=== PATIENT | female | born 1985 | race Caucasian/White ===

== ENCOUNTER 2016-10-01 10:59 | Outpatient (CLI) | payer MEDICAID ==
[~2016-10-01] VITALS: Ht 160 cm; Wt 72.5 kg
[2016-10-01] MEDS ORDERED: PRENAT PO (11:15)
[2016-10-01] MEDS ORDERED: FOLI-49 PO (11:15)
[2016-10-01 11:16] VITALS: BP 107/62; PULSE 94; RESP 18; Ht 160 cm; Wt 72.5 kg
--- NOTE | 2016-10-01 11:54 | RADRPT ---
PROCEDURE: OB ultrasound for biophysical profile CLINICAL INDICATION: Contractions. TECHNIQUE: Multiple sonographic images of the pelvis were obtained. Transabdominal view of the gr avid uterus are available for review. The images were reviewed on a PACS workstation. COMPARISON: None FINDINGS: breathing movement = 2/2 tone = 2/2 motion = 2/2 Quantitative amniotic fluid volume = 2/2 VIKTORIA = 17.1 cm Single live intrauterine with cardiac activity at 163 beats per minute. There is a posterior placenta without previa. IMPRESSION: 1. Single living intrauterine gestation in cephalic position. 2. Biophysical profile = 02/03. 3. VIKTORIA = 17.1 cm. RPTAT: AACC Physician Mary Date Time Electronically viewed and signed by Jeet King Physician on 10/01/2016 11:53 /
--- NOTE | 2016-10-01 12:09 | RADRPT ---
PROCEDURE: US OB CLINICAL INDICATION: Contractions TECHNIQUE: Multiple sonographic images of the pelvis were obtained. The images were reviewed on a PACS workstation. COMPARISON: None FINDINGS: The cervix is closed with a length of 3.5 cm. There is a single viable intrauterine gestation. Cardiac activity is present with 144 beats per minute. There is a vertex presentation. The placenta is posterior. There is no evidence for an abruption or placenta previa. There is a subjectively normal amount of amniotic fluid. Measurements were made in order to determine age. The results are as follows (cm): BPD =8.69 HC =32.26 AC =32.04 FL =6.74 Estimated gestational age by ultrasound of approximately 35 weeks, 4 days. The estimated date of delivery by ultrasound is 11/01/2016. Estimated gestational age by LMP of approximately 34 weeks, 0 days. The estimated date of delivery by LMP is 11/12/2016. EFW = 2714 grams (86th percentile) IMPRESSION: Single viable intrauterine gestation of approximately 35 weeks, 48 . The estimated date of delivery is is 11/01/2016 . Dating by ultrasound is within 11 days of dating by LMP. Cephalic presentation. RPTAT: EE Physician Garrett Date Time Electronically viewed and signed by Physician Garrett on 10/01/2016 12:09 /
--- NOTE | 2016-10-01 13:14 | TRIAGE ---
OB Triage Datetime Report Generated by CPN: 10/01/2016 13:13 Datetime: 10/01/2016 11:14 Assessment Type: Triage Maternal Assessment Level of Consciousness: Fully Conscious DTR's/Clonus: DTRs 2+; No Clonus Headache: Denies Blurred Vision: No Respiratory Effort: Unlabored; Regular Rhythm; Equal Expansion Breath Sounds, Left: Clear and Equal Breath Sounds, Right: Clear and Equal Nausea/Vomiting: Denies RUQ Epigastric Pain: Denies Lower Extremities Edema: None Degree: None Upper Extremities Edema: None Degree: None Facial Edema: None Fall Risk Assessment History of Falling: (0) No Secondary Diagnosis: (0) No Ambulatory Aid: (0) Bedrest/Nurse Assist IV Therapy: (0) No Gait: (0) Normal/Bedrest/Immobile Mental Status: (0) Oriented to Own Ability Fall Score: 0 Fall Risk Score Definition: No Risk: No action required Datetime: 10/01/2016 11:12 Time of Arrival: 10/01/2016 10:52 EGA: 34.3 Arrived By: Ambulatory Arrived From: Dr. Santamaria Chief Complaint: PT SENT IN FROM OB OFFICE FOR EVAL. OF PTL. Movement: Present Contractions: Irregular Rupture of Membranes: Denies Vaginal Bleeding: None Vaginal Discharge: Present Recent Sexual Intercouse: Denies Abdominal Trauma: Not Applicable Patient Complaints: Contractions; Cramping; Back Pain Provider Notified: TU Initial Plan: EFM, U/S BPP, EFW, CVL Datetime: 10/01/2016 11:08 Labor Evaluation Monitor Mode: External Heart Rate Monitor Mode: External US
== END 2016-10-01 13:20 | disposition home or self-care (01) ==
LOC: OBT 10:59 → L-D 11:00 → OBT 13:20
PROVIDERS: ATTEND Obstetrics & Gynecology
DX: O26.893 Other specified pregnancy related conditions, third trimester (principal); O62.9 Abnormality of forces of labor, unspecified; Z3A.34 34 weeks gestation of pregnancy
CPT/HCPCS: 76815; 76817; 76818; Z7500; G0463

== ENCOUNTER 2016-11-04 15:10 | Inpatient (IN) | payer MEDICAID ==
[~2016-11-04] VITALS: Ht 160 cm; Wt 71.7 kg
[~2016-11-04 15:10] MED LIST: FOLI-49 PO; PRENAT PO
[2016-11-04 15:21] VITALS: Ht 160 cm; Wt 71.7 kg
[2016-11-04 15:22] VITALS: BP 120/69; PULSE 82; RESP 19
--- NOTE | 2016-11-04 17:55 | TRIAGE ---
OB Triage Datetime Report Generated by CPN: 11/04/2016 17:55 Datetime: 11/04/2016 17:38 Vaginal Exam Dilatation (cms): 3.0 Effacement (%): 60 Station: -2 Exam By: RRAMIREZ Vaginal Bleeding: None Cervix, Consistency: Soft Cervix, Position: Midposition Datetime: 11/04/2016 15:29 Maternal Assessment Level of Consciousness: Fully Conscious DTR's/Clonus: DTRs 1+ Headache: Denies Blurred Vision: No Breath Sounds, Left: Clear and Equal Breath Sounds, Right: Clear and Equal Nausea/Vomiting: Denies RUQ Epigastric Pain: Denies Facial Edema: None Labor Evaluation Frequency: X1 Monitor Mode: External Duration (sec)2399: 50 Quality: Mild Pattern: Normal: <= 5 Contractions in 10 Minutes Resting Tone [place]: Relaxed Heart Rate FHR Baseline Rate: 135 Monitor Mode: External US Variability: Moderate 6-25 bpm Accelerations: 15X15 Decelerations: None Category: Category I Pain Assessment Pain Scale: 5 Pain Presence: Intermittent Pain Type: Cramping Pain Location: Abdomen Pain Goal: 3 Pain Relief Measures: Comfort Measures Membrane Status: Intact Datetime: 11/04/2016 15:19 Assessment Type: Triage Maternal Assessment Level of Consciousness: Fully Conscious DTR's/Clonus: DTRs 2+; No Clonus Headache: Denies Blurred Vision: No Respiratory Effort: Unlabored; Regular Rhythm; Equal Expansion Breath Sounds, Left: Clear and Equal Breath Sounds, Right: Clear and Equal Nausea/Vomiting: Denies RUQ Epigastric Pain: Denies Lower Extremities Edema: None Degree: None Upper Extremities Edema: None Degree: None Facial Edema: None Fall Risk Assessment History of Falling: (0) No Secondary Diagnosis: (0) No Ambulatory Aid: (0) Bedrest/Nurse Assist IV Therapy: (0) No Gait: (0) Normal/Bedrest/Immobile Mental Status: (0) Oriented to Own Ability Fall Score: 0 Fall Risk Score Definition: No Risk: No action required Datetime: 11/04/2016 15:16 Vaginal Exam Dilatation (cms): 2.0 Effacement (%): 50 Station: -2 Exam By: ILDA MITCHELL Vaginal Bleeding: None Cervix, Consistency: Soft Cervix, Position: Posterior Presentation 'A': Cephalic Datetime: 11/04/2016 15:00 Time of Arrival: 11/04/2016 15:00 EGA: 39.2 Arrived By: Ambulatory Arrived From: Home Chief Complaint: R/O LABOR Movement: Present Contractions: Denies/Absent Rupture of Membranes: Denies Vaginal Discharge: Denies Recent Sexual Intercouse: Denies Abdominal Trauma: Not Applicable Additional Patient Complaints: NONE Time Provider Notified: 11/04/2016 15:19 Provider Notified: TU Initial Plan: VE AND MONITOR PT TO AMBULATE FOR 2 HRS Datetime: 10/01/2016 11:14 Fall Score: 0 Fall Risk Score Definition: No Risk: No action required Datetime: 10/01/2016 11:12 EGA: 34.3
[2016-11-04] MEDS ORDERED: MISOPROSTOL 200 MCG TAB PR PRN (18:00)
[2016-11-04] MEDS ORDERED: LIDOCAINE 1% (MPF) 30 ML INJ INJ PRN (18:00)
[2016-11-04] MEDS ORDERED: BUTORPHANOL 2 MG INJ IV PRN ×2 (18:00→18:30)
[2016-11-04] MEDS ORDERED: LACTATED RINGER'S 1,000 ML IV PRN (18:00)
[2016-11-04] MEDS ORDERED: AMPICILLIN 2 GM/NS (PMX) 100 ML IV ONE (18:00)
[2016-11-04] MEDS ORDERED: OXYTOCIN 30 UNITS/LR 500 ML IV SCH ×2 (18:00→18:30)
[2016-11-04] MEDS ORDERED: METHYLERGONOVINE 0.2 MG INJ IM PRN (18:00)
[2016-11-04] MEDS ORDERED: IBUPROFEN 600 MG TAB PO PRN (18:00)
[2016-11-04] MEDS ORDERED: OXYTOCIN 30 UNITS/LR 500 ML IV PRN (18:00)
[2016-11-04] MEDS ORDERED: CARBOPROST 250 MCG INJ IM PRN (18:00)
[2016-11-04] MEDS: LACTATED RINGER'S 1,000 ML IV SCH (18:25)
[2016-11-04 18:37] LABS: ADD SCAN DIFF NO
[2016-11-04 18:39] LABS: BASOPHIL # 0.1 10^3/ul (0.0-0.1); BASOPHILS % 0.5 % (0.0-2.0); EOSINOPHILS # 0.2 10^3/ul (0.0-0.5); HEMATOCRIT 40.7 % (37.0-47.0); HEMOGLOBIN 14.3 g/dl (12.0-16.0); LYMPHOCYTES # 2.2 10^3/ul (0.8-2.9); LYMPHOCYTES % 21.5 % (15.0-51.0); MEAN CORPUSCULAR HEMOGLOBIN 32.7 pg (29.0-33.0); MEAN CORPUSCULAR HGB CONC 35.1 g/dl (32.0-37.0); MEAN CORPUSCULAR VOLUME 93.1 fl (82.0-101.0); MEAN PLATELET VOLUME 11.2 fl (7.4-10.4); MONOCYTE # 1.2 10^3/ul (0.3-0.9); MONOCYTES % 11.3 % (0.0-11.0); NEUTROPHIL # 6.3 10^3/ul (1.6-7.5); PLATELET COUNT 192 10^3/UL (140-415); RED BLOOD COUNT 4.37 10^6/ul (4.20-5.40); RED CELL DISTRIBUTION WIDTH 13.3 % (11.5-14.5); WHITE BLOOD COUNT 10.2 10^3/ul (4.8-10.8)
[2016-11-04 18:54] LABS: INR 0.96; PROTIME 12.8 Sec (12.2-14.2)
[2016-11-04 18:55] LABS: PARTIAL THROMBOPLASTIN TIME 28.9 Sec (25.0-35.0)
[2016-11-04] MEDS ORDERED: MINERAL OIL LIGHT 10 ML VIAL TOP PRN (20:30)
[2016-11-04] MEDS ORDERED: AMPICILLIN 1 GM/NS (PMX) 50 ML IV SCH (22:00)
[2016-11-05] MEDS: LACTATED RINGER'S 1,000 ML IV SCH ×2 (01:11→09:06)
[2016-11-05] MEDS ORDERED: OXYTOCIN 30 UNITS/LR 500 ML IV SCH (09:00)
[2016-11-05] MEDS ORDERED: FENTAnyl 2MCG/ML-ROPIV 0.2% 100 ML ONE (12:06)
--- NOTE | 2016-11-05 13:18 | RADRPT ---
PROCEDURE: US OB. CLINICAL INDICATION: Size and dates , leaking fluid TECHNIQUE: Multiple sonographic images of the pelvis and gravid uterus were obtained. The images were reviewed on a PACS workstation. COMPARISON: No prior studies are available for comparison. FINDINGS: There is a single viable intrauterine gestation. Cardiac activity is present with 168 beats per min joe. There is a fundal presentation. The placenta is anterior. There is no evidence for an abruption or placenta previa. There is a normal amount of amniotic fluid with an VIKTORIA = 8.8 cm. Measurements were made in order to determine age. The results are as follows: BPD =9.1 cm HC =33.2 cm AC =37.5 cm FL =7.5 cm Estimated gestational age of approximately 38 weeks and 5 days based on ultrasound measurements. Clinical age: 39 weeks and 3 days. The estimated date of delivery is 11/14/2016, based on ultrasound measurements. The EFW = 3881 g, 79%, based on LMP age. RPTAT: AA IMPRESSION: Single viable intrauterine gestation of approximately 38 weeks and 5 days based on ultrasound measu rements. .Nolan Alan MD, Date Time Electronically viewed and signed by .Nolan Alan MD, MD on 11/05/2016 13:18 .S/
[2016-11-05] MEDS ORDERED: MIDAZOLAM 1 MG/ML 2 ML INJ IV PRN (13:30)
[2016-11-05] MEDS ORDERED: KETOROLAC 30 MG INJ IV PRN (13:30)
[2016-11-05] MEDS ORDERED: FENTAnyl 2MCG/ML-ROPIV 0.2% 100 ML BAG EPI SCH (13:30)
[2016-11-05] MEDS ORDERED: DIPHENHYDRAMINE 50 MG INJ IV PRN ×2 (13:30)
[2016-11-05] MEDS ORDERED: HYDROmorphONE (0.2 MG/ML) 10ML SYG IV PRN ×3 (13:30)
[2016-11-05] MEDS ORDERED: ZOLPIDEM 5 MG TAB PO PRN (13:30)
[2016-11-05] MEDS ORDERED: MEPERIDINE 25 MG INJ IV PRN (13:30)
[2016-11-05] MEDS ORDERED: ONDANSETRON 4 MG INJ IV PRN ×3 (13:30→18:00)
[2016-11-05] MEDS ORDERED: LABETALOL HCL 20MG INJ IV PRN (13:30)
[2016-11-05] MEDS ORDERED: hydrALAzine 20 MG INJ IV PRN (13:30)
[2016-11-05] MEDS ORDERED: FENTAnyl 50 MCG/ML VIAL IV PRN ×3 (13:30)
[2016-11-05] MEDS ORDERED: NALOXONE (0.4 MG/ML) INJ IV PRN (13:30)
[2016-11-05] MEDS ORDERED: EPHEDrine SULFATE 50 MG/5 ML SYG IV PRN (13:30)
[2016-11-05] MEDS ORDERED: TRIMETHOBENZAMIDE 100 MG/ML VIAL IM PRN (13:30)
[2016-11-05] MEDS ORDERED: morphine 2 MG INJ IV PRN ×2 (13:30)
--- NOTE | 2016-11-05 16:56 | LDN ---
Date/Time of Note Date/Time of Note DATE: 11/05/16 TIME: 16:52 Delivery Summary Normal spontaneous vaginal delivery of a baby boy from OA position shoulders delivered with no difficulties rest of the baby's body followed placenta spontaneous expulsion inspected complete, patient sustained small 1 cm perineal laceration repaired with 3-0 chromic catgut estimated blood loss 250 cc Weeks of Gestation 39 weeks 3 days Placenta Delivered: Spontaneously Meconium: none Episiotomy: No Laceration repair: Small 1 cm perineal laceration repaired with 3-0 chromic catgut Anesthesia type: Epidural Sponge & Needle done & correct: Yes All needle counts correct: Yes Any foreign bodies felt in the: No Problems: Delivery Information Apgars 1 Minute: 9 5 Minute: 9 Suctioning Nose & mouth suctioned at timoteo: Yes Delee suction performed: No Umbilical Cord Umbilical cord with: 3 Vessels Cord presentations: no nuchal cord Cord Blood was obtained: Yes FALLON MAE MD November 05, 2016 16:56
--- NOTE | 2016-11-05 17:01 | HP ---
Date/Time of Note Date/Time of Note DATE: 11/05/16 TIME: 16:56 OB - History Hx of Present Free Text/Dictation 30 years old female 5 para SAB 2 admitted to [facility] in labor pelvic examination on admission cervix 3 cm dilated 60% effaced vertex at -2 stay contraction 5-7 minutes moderate in intensity may need labor augmentation Estimated Due Date: November 09, 2016 : 5 Para: 2 Spontaneous : 2 Care: Good Care Ultrasounds: Normal mid trimester US Obstetrical Complications: None Medical Complications: None Past Family/Social History * Past Medical, Surgical, Family and Obstetric Histories reviewed from chart. Rubella: immune RPR/VDRL: Negative GBS Status: Negative HBsAG: Negative OB Admission Exam Vital Signs Vital Signs Vital Signs Date Time Temp Pulse Resp B/P Pulse Ox O2 Delivery O2 Flow Rate FiO2 11/04/16 15:22 98.0 82 19 120/69 99 Room Air Physical Exam HEENT: WNL Lungs: Clear, Equal Abdomen: WNL Extremities: Normal Cervical Dilatation: 3cm Effacement: 50% Station: -2 Membranes: Intact Heart Rate: 130's Accelerations: Accelerations Present Decelerations: No Decelerations Varibility: Moderate Contractions on Admission: >10 Minutes Apart Intensity: Mild Last 72 hours Lab Results CBC & BMP 11/04/16 18:15 OB Assessment/Plan Reason for admission: other (Labor contraction) Plan: Expectant Management (Expecting management) FALLON MAE MD November 05, 2016 17:01
[2016-11-05] MEDS: OXYTOCIN 30 UNITS/LR 500 ML IV SCH ×2 (17:54→21:01)
[2016-11-05 18:00] VITALS: BP 124/65; PULSE 78; RESP 19
[2016-11-05] MEDS ORDERED: WITCH HAZEL/GLYCERIN PAD PR PRN (18:00)
[2016-11-05] MEDS ORDERED: DIBUCAINE 1% 30 GM OINT PR PRN (18:00)
[2016-11-05] MEDS: IBUPROFEN 600 MG TAB PO SCH ×2 (18:00→23:34)
[2016-11-05] MEDS ORDERED: BENZOCAINE 20% 56 ML SPRAY TOP PRN (18:00)
[2016-11-05] MEDS ORDERED: ACETAMINOPHEN/CODEINE #3 TAB PO PRN ×2 (18:00)
[2016-11-05] MEDS ORDERED: ACETAMINOPHEN 325 MG TAB PO PRN (18:00)
[2016-11-05] MEDS ORDERED: LANOLIN 7 GM TUBE TOP PRN (18:00)
[2016-11-05] MEDS ORDERED: OXYCODONE/ASPIRIN (4.88/325) TAB PO PRN ×2 (18:00)
[2016-11-05 20:00] VITALS: BP 107/55; PULSE 95; RESP 20
[2016-11-05] MEDS: SENNA/DOCUSATE NA (8.6MG/50MG) TAB PO SCH (21:00)
[2016-11-06 00:30] VITALS: BP 114/72; PULSE 79; RESP 20
[2016-11-06 04:40] VITALS: BP 103/54; PULSE 79; RESP 20
[2016-11-06] MEDS: IBUPROFEN 600 MG TAB PO SCH ×4 (06:24→23:31)
[2016-11-06 08:00] VITALS: BP 108/66; PULSE 73; RESP 19
[2016-11-06] MEDS: SENNA/DOCUSATE NA (8.6MG/50MG) TAB PO SCH ×2 (09:58→21:07)
[2016-11-06 10:37] LABS: ADD SCAN DIFF NO
[2016-11-06 10:52] LABS: BASOPHILS % 0.3 % (0.0-2.0); EOSINOPHILS # 0.1 10^3/ul (0.0-0.5); EOSINOPHILS % 0.8 % (0.0-7.0); HEMATOCRIT 37.1 % (37.0-47.0); HEMOGLOBIN 12.7 g/dl (12.0-16.0); LYMPHOCYTES # 2.1 10^3/ul (0.8-2.9); LYMPHOCYTES % 18.1 % (15.0-51.0); MEAN CORPUSCULAR HEMOGLOBIN 32.5 pg (29.0-33.0); MEAN CORPUSCULAR HGB CONC 34.2 g/dl (32.0-37.0); MEAN CORPUSCULAR VOLUME 94.9 fl (82.0-101.0); MEAN PLATELET VOLUME 11.2 fl (7.4-10.4); MONOCYTE # 1.1 10^3/ul (0.3-0.9); MONOCYTES % 9.4 % (0.0-11.0); NEUTROPHIL # 8.2 10^3/ul (1.6-7.5); NEUTROPHILS % 69.9 % (39.0-77.0); PLATELET COUNT 166 10^3/UL (140-415); RED BLOOD COUNT 3.91 10^6/ul (4.20-5.40); RED CELL DISTRIBUTION WIDTH 13.6 % (11.5-14.5); WHITE BLOOD COUNT 11.6 10^3/ul (4.8-10.8)
[2016-11-06 16:00] VITALS: BP 108/55; PULSE 81; RESP 19
[2016-11-06 20:30] VITALS: BP 124/82; PULSE 72; RESP 18
--- NOTE | 2016-11-07 00:51 | QN ---
Documentation Comment afebrile uterus firm lochia normal ext normal FALLON MAE MD November 07, 2016 00:51
--- NOTE | 2016-11-07 00:54 | QN ---
Documentation Comment ppd1 afebrile abd. soft lochia normal ext normal Laboratory Tests Test 11/06/16 10:19 White Blood Count 11.610^3/ul Red Blood Count 3.9110^6/ul Hemoglobin 12.7g/dl Hematocrit 37.1% Mean Corpuscular Volume 94.9fl Mean Corpuscular Hemoglobin 32.5pg Mean Corpuscular Hemoglobin Concent 34.2g/dl Red Cell Distribution Width 13.6% Platelet Count 51445^3/UL Mean Platelet Volume 11.2fl Neutrophils % 69.9% Lymphocytes % 18.1% Monocytes % 9.4% Eosinophils % 0.8% Basophils % 0.3% Nucleated Red Blood Cells % 0.0/100WBC Neutrophils # 8.210^3/ul Lymphocytes # 2.110^3/ul Monocytes # 1.110^3/ul Eosinophils # 0.110^3/ul Basophils # 0.010^3/ul Nucleated Red Blood Cells # 0.010^3/ul Current Medications Medications (Trade) Dose Ordered Sig/Ruben Route PRN Reason Start Time Stop Time Status Last Admin Dose Admin Lactated Ringer's 1,000 ml @ 125 mls/hr Q8H IV 11/04/16 17:48 11/05/16 17:59 DC 11/05/16 09:06 Ampicillin 100 ml @ 100 mls/hr ONCE ONCE IV 11/04/16 18:00 11/04/16 18:26 DC Ampicillin (Ampicillin 1 Gm/ NS (Pmx)) 50 ml @ 100 mls/hr Q4H IV 11/04/16 22:00 11/04/16 22:00 DC Butorphanol Tartrate (Stadol) 1 mg Q2H PRN IV PAIN 11/04/16 18:00 11/05/16 17:59 DC Lidocaine 30 ml 30 ml ONCE PRN INJ EPISIOTOMY/TEARING 11/04/16 18:00 11/05/16 17:59 DC Oxytocin/Lactated Ringer's 500 ml @ 125 mls/hr ONCE -MAY REPEAT X1 IV 11/04/16 18:00 11/05/16 17:59 DC Ibuprofen 600 mg 600 mg ONCE PRN PO Mild Pain (Pain Score 1-3) 11/04/16 18:00 11/05/16 17:59 DC Lactated Ringer's 1,000 ml @ 2,000 mls/hr Q30M PRN IV PRE-EPIDURAL BOLUS 11/04/16 18:00 11/05/16 17:59 DC 11/05/16 12:04 Oxytocin/Lactated Ringer's 500 ml @ 0 mls/hr ONCE PRN IV For Hemorrhage Management 11/04/16 18:00 11/05/16 17:59 DC Methylergonovine Maleate (Methergine) 0.2 mg ONCE PRN IM VAGINAL BLEEDING 11/04/16 18:00 Carboprost Tromethamine (Hemabate) 250 mcg ONCE PRN IM VAGINAL BLEEDING 11/04/16 18:00 Misoprostol 1000 mcg 1,000 mcg ONCE PRN OK VAGINAL BLEEDING 11/04/16 18:00 11/05/16 18:00 DC Oxytocin/Lactated Ringer's 500 ml @ 125 mls/hr ONCE IV 11/04/16 18:30 11/05/16 18:00 DC 11/05/16 16:31 Butorphanol Tartrate (Stadol) 2 mg Q2H PRN IV PAIN 11/04/16 18:30 11/05/16 18:00 DC Mineral Oil ONCE PRN TOP LABOR INDUCTION 11/04/16 20:30 11/05/16 18:00 DC Oxytocin/Lactated Ringer's 500 ml @ 0 mls/hr Q0M IV 11/05/16 09:00 11/05/16 18:00 DC 11/05/16 09:08 Fentanyl/ Ropivacaine 100 ml @ ud STK-MED ONCE .ROUTE 11/05/16 12:06 11/05/16 12:07 DC Hydromorphone HCl (Dilaudid (Rec)) 0.2 mg PACU ORDER PRN IV MILD PAIN LEVEL 1-3 11/05/16 13:30 11/05/16 18:00 DC Hydromorphone HCl (Dilaudid (Rec)) 0.4 mg PACU ORDER PRN IV MODERATE PAIN LEVEL 4-6 11/05/16 13:30 11/05/16 18:00 DC Hydromorphone HCl (Dilaudid (Rec)) 0.6 mg PACU ORDER PRN IV SEVERE PAIN LEVEL 7-10 11/05/16 13:30 11/05/16 18:00 DC Fentanyl (Sublimaze) 25 mcg PACU ORDER PRN IV MILD PAIN LEVEL 1-3 11/05/16 13:30 11/05/16 18:00 DC Fentanyl (Sublimaze) 50 mcg PACU ODER PRN IV MODERATE PAIN LEVEL 4-6 11/05/16 13:30 11/05/16 18:00 DC Fentanyl (Sublimaze) 75 mcg PACU ORDER PRN IV SEVERE PAIN LEVEL 7-10 11/05/16 13:30 11/05/16 18:00 DC Ondansetron HCl (Zofran Inj) 4 mg PACU ORDER PRN IV NAUSEA AND/OR VOMITING 11/05/16 13:30 11/05/16 18:00 DC Trimethobenzamide HCl (Tigan) 200 mg PACU ORDER PRN IM NAUSEA AND/OR VOMITING 11/05/16 13:30 11/05/16 18:00 DC Labetalol HCl (Labetalol) 5 mg PACU ORDER PRN IV HIGH BLOOD PRESSURE 11/05/16 13:30 11/05/16 18:00 DC Hydralazine HCl (Apresoline) 5 mg PACU ORDER PRN IV HIGH BLOOD PRESSURE 11/05/16 13:30 11/05/16 18:00 DC Ephedrine Sulfate 5 mg PACU ORDER PRN IV MAP LESS THAN 60 11/05/16 13:30 11/05/16 18:00 DC Meperidine HCl (Demerol) 25 mg PACU ORDER PRN IV POST-OP RIGORS 11/05/16 13:30 11/05/16 18:00 DC Diphenhydramine HCl (Benadryl) 25 mg PACU ORDER PRN IV PRURITUS 11/05/16 13:30 11/05/16 18:00 DC Midazolam HCl (Versed) 0.5 mg PACU ORDER PRN IV ANXIETY 11/05/16 13:30 11/05/16 18:00 DC Naloxone HCl (Narcan) 0.1 mg Q2M PRN IV FOR RESP RATE 8 OR LESS 11/05/16 13:30 11/05/16 18:00 DC Ketorolac Tromethamine (Toradol) 30 mg Q6H PRN IV PAIN 11/05/16 13:30 11/05/16 18:00 DC Morphine Sulfate (morphine) 2 mg Q3H PRN IV PAIN LEVEL 1-5 11/05/16 13:30 11/05/16 18:00 DC Morphine Sulfate (morphine) 4 mg Q3H PRN IV PAIN LEVEL 6-10 11/05/16 13:30 11/05/16 18:00 DC Diphenhydramine HCl (Benadryl) 25 mg Q6H PRN IV ITCHING 11/05/16 13:30 11/05/16 18:00 DC Ondansetron HCl (Zofran Inj) 4 mg Q6H PRN IV NAUSEA AND/OR VOMITING 11/05/16 13:30 11/05/16 18:00 DC Zolpidem Tartrate (Ambien) 5 mg HS MAY REPEAT X 1 PRN PO INSOMNIA 11/05/16 13:30 11/06/16 13:29 DC Fentanyl/ Ropivacaine 100 ml 100 ml EPIDURAL INFUSION EPI 11/05/16 13:30 11/05/16 18:00 DC Oxytocin/Lactated Ringer's 500 ml @ 125 mls/hr Q4H IV 11/05/16 17:54 11/06/16 01:53 DC 11/05/16 21:01 Ibuprofen (Motrin) 600 mg Q6 PO 11/05/16 18:00 11/06/16 23:31 Acetaminophen (Tylenol Tab) 650 mg Q4H PRN PO PAIN LEVEL 1-5 11/05/16 18:00 Acetaminophen/ Codeine Phosphate (Tylenol No.3) 1 tab Q4H PRN PO PAIN LEVEL 1-5 11/05/16 18:00 Acetaminophen/ Codeine Phosphate (Tylenol No.3) 2 tab Q4H PRN PO PAIN LEVEL 6-10 11/05/16 18:00 Oxycodone/Aspirin (Percodan) 1 tab Q3H PRN PO PAIN LEVEL 1-5 11/05/16 18:00 Oxycodone/Aspirin (Percodan) 2 tab Q3H PRN PO PAIN LEVEL 6-10 11/05/16 18:00 Ondansetron HCl (Zofran Inj) 4 mg Q6H PRN IV NAUSEA AND/OR VOMITING 11/05/16 18:00 Senna/Docusate Sodium (Senokot-S) 1 tab BID PO 11/05/16 21:00 11/06/16 21:07 Witch Peggy/ Glycerin (Tucks Pads) 1 pad BEDSIDE MEDICATION PRN OK HEMORRHOID/EPISIOTMY PAIN 11/05/16 18:00 11/05/16 23:34 Benzocaine (Dermoplast [place]) 1 spray BEDSIDE MEDICATION PRN TOP HEMORRHOID/EPISIOTMY PAIN 11/05/16 18:00 11/05/16 23:35 Dibucaine (Nupercainal) 1 applic BEDSIDE MEDICATION PRN OK HEMORRHOID/EPISIOTMY PAIN 11/05/16 18:00 11/05/16 23:35 Lanolin (Fny-N-Eicjqn) 1 applic BEDSIDE MEDICATION PRN TOP BEDSIDE FOR NO TO NIPPLES 11/05/16 18:00 11/05/16 23:36 Measles/Mumps/ Rubella Vaccine Live (Mmr Ii Vaccine) 0.5 ml ONCE ONCE SC* 11/07/16 09:00 11/07/16 09:01 FALLON MEA MD November 07, 2016 00:54
[2016-11-07 04:00] VITALS: BP 116/86; PULSE 70; RESP 18
[2016-11-07] MEDS: IBUPROFEN 600 MG TAB PO SCH ×2 (05:40→11:37)
[2016-11-07 08:00] VITALS: BP 100/59; PULSE 63; RESP 18
[2016-11-07] MEDS: SENNA/DOCUSATE NA (8.6MG/50MG) TAB PO SCH (08:47)
[2016-11-07] MEDS ORDERED: MEASLES,MUMPS,RUBELLA VACCINE INJ SC* ONE (09:00)
--- NOTE | 2016-11-07 13:57 | PN ---
Date/Time of Note Date/Time of Note DATE: 11/07/16 TIME: 13:55 OB Subjective Subjective Subjective Patient without complaints. OB Objective Objective Objective Gen: NAD Abd: FF OB Assessment/Plan Reason for admission: active labor Other Assessment: s/p Other plan: PPD2 -discharge home -pelvic rest -f/u with OB clinic KAMRAN HERRERA November 07, 2016 13:57
== END 2016-11-07 15:34 | disposition home or self-care (01) | DRG 775 ==
LOC: L-D 15:10 → OBT 15:10 → L-D 15:17 → UNDOADMIN 15:17 → OBT 17:49 → L-D 17:50 → PP1 11-05 17:52
PROVIDERS: ADMIT Obstetrics & Gynecology; ATTEND Obstetrics & Gynecology
PROC: 10D07Z8 Extraction of Products of Conception, Other, Via Natural or Artificial Opening (ICD-10-PCS; principal; 2016-11-05)
PROC: 0HQ9XZZ Repair Perineum Skin, External Approach (ICD-10-PCS; 2016-11-05)
DX: O70.0 First degree perineal laceration during delivery (principal); Z37.0 Single live birth; Z3A.39 39 weeks gestation of pregnancy
CPT/HCPCS: 62319; 76815; 85025; 85610; 85730; 86592; 86900; 86901; 87340; G0463; J2590; J3010; J7120